=== PATIENT | female | born 1980 | race Two or more races ===

== ENCOUNTER 2020-09-21 06:28 | Day surgery (SDC) | payer OTHER ==
[~2020-09-21 06:28] MED LIST: ACETAMINOPHEN500 M1 PO; IBUPROFEN800 MG PO; PRENATABS RX T1 EACH PO; PROGESTERONE200 MG VAG
== END 2020-09-21 10:45 | disposition home or self-care (01) ==
LOC: CIR.AMB 06:28
PROVIDERS: ATTEND Obstetrics & Gynecology
DX: O02.1 Missed abortion (principal); Z20.828 Contact with and (suspected) exposure to other viral communicable diseases

== ENCOUNTER 2022-07-11 06:19 | Day surgery (SDC) | payer OTHER | END 2022-07-11 18:40 | disposition home or self-care (01) | LOC: CIR.AMB 06:19 | PROVIDERS: ATTEND Obstetrics & Gynecology | DX: N84.0 Polyp of corpus uteri (principal); Z20.822 Contact with and (suspected) exposure to COVID-19; G40.802 Other epilepsy, not intractable, without status epilepticus ==